=== PATIENT | female | born 1960 | race Asian ===

== ENCOUNTER 2021-09-30 21:38 | Emergency (ER) | payer OTHER ==
[~2021-09-30] VITALS: Ht 152.4 cm; Wt 52.3 kg
[2021-09-30] MEDS ORDERED: AmLODIPine BESYLATE 5 MG TABLET PO ONE (22:00)
[2021-09-30] MEDS ORDERED: TraMADol HCL 50 MG TABLET PO ONE (22:00)
[2021-09-30] MEDS ORDERED: HYDR25TA2 PO (22:13)
[2021-09-30] MEDS ORDERED: METO25 PO (22:13)
[2021-09-30] MEDS ORDERED: LOSA-382 PO (22:13)
[2021-10-01] MEDS ORDERED: IBUP-2070 PO (00:13)
[2021-10-01] MEDS ORDERED: HYDR25TA2 PO (00:13)
[2021-10-01] MEDS ORDERED: LOSA-382 PO (00:13)
[2021-10-01 00:31] VITALS: BP 183/90
== END 2021-10-01 00:51 | disposition home or self-care (01) ==
LOC: EMS 21:38
DX: S80.11XA Contusion of right lower leg, initial encounter (principal); S20.211A Contusion of right front wall of thorax, initial encounter; I10 Essential (primary) hypertension; V49.49XA Driver injured in collision with other motor vehicles in traffic accident, initial encounter; Y93.89 Activity, other specified; Y92.411 Interstate highway as the place of occurrence of the external cause; Y99.8 Other external cause status
CPT/HCPCS: 71046; 93005; 99284